=== PATIENT | female | born 1945 | race Caucasian/White ===

== ENCOUNTER 2023-09-03 11:46 | Outpatient (CLI) | payer MEDICARE, SELFPAY ==
--- NOTE | ~2023-09-03 | XR_ITS ---
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 TECHNIQUE: Anteroposterior and frog-leg lateral views of the right hip were obtained. COMPARISON: None. FINDINGS: Noncemented left total hip arthroplasty which is in near-anatomic alignment. No periprosthetic lucenc y to suggest loosening or infection. No fracture. Postoperative changes in the lower lumbar spine inc luding instrumented posterior spinal fusion involving at least L3-L5 but extending beyond the cephala d margin of the [id number]. There is increased lucency surrounding the left-sided pedicle screw at L5 which is suspicious for loosening. 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 IMPRESSION: 1. Noncemented right total hip arthroplasty which is in near-anatomic alignment with no acute osseous abnormality or periprosthetic lucency to suggest loosening or infection. 2. Instrumented lower lumbar posterior spinal fusion with lucency surrounding the left-sided pedicle screw at L5 suspicious for loosening. Reviewed, dictated and finalized at location A. [employer] IMPRESSION: 1. Noncemented right total hip arthroplasty which is in near-anatomic alignment with no acute osseous abnormality or periprosthetic lucency to suggest looseni ng or infection. 2. Instrumented lower lumbar posterior spinal fusion with lucency surrounding t he left-sided pedicle screw at L5 suspicious for loosening.
== END 2023-09-03 11:47 | disposition home or self-care (01) ==
PROVIDERS: PCP Internal Medicine; Visit Provider Internal Medicine
DX: M43.26 Fusion of spine, lumbar region (principal); Z96.641 Presence of right artificial hip joint
CPT/HCPCS: 73502